=== PATIENT | female | born 1995 | race Caucasian/White ===

== ENCOUNTER 2016-07-22 19:04 | Emergency (ER) | payer MEDICAID ==
[2016-07-22 19:50] LABS: URINE BILIRUBIN NEGATIVE (NEGATIVE); URINE BLOOD NEGATIVE (NEGATIVE); URINE COLOR YELLOW; URINE GLUCOSE (UA) NEGATIVE (NEGATIVE); URINE KETONE NEGATIVE (NEGATIVE); URINE PROTEIN NEGATIVE (NEGATIVE); URINE UROBILINOGEN 0.2 E.U./dL (0.2 - 1.0)
[2016-07-22 19:51] LABS: URINE BACTERIA OCCASIONAL /hpf (NONE SEEN); URINE EPITHELIAL CELLS FEW /lpf (FEW); URINE RBC NONE SEEN /hpf (0-5); URINE WBC 0-2 /hpf (0-5)
--- NOTE | 2016-07-22 19:57 | ED Physician Chart ---
Chief Complaint/HPI - Patient Information Date Seen:: 07/22/16 Time Seen:: 19:22 Chief Complaint:: ABDOMINAL PAIN History of Present Illness:: THIS IS A 21 YO FEMALE DOWN'S PATIENT WITH A PAST HISTORY OF CROHN'S DISEASE WITH ABDOMINAL PAIN ASSOCIATED WITH DIARRHEA. SHE HAS NOT VOMITED OR HAD FEVER. SHE TAKES AZATHIOPRINE 50MG EVERY MORNING FOR THE CROHN'S DISEASE. Allergies:: Allergies Allergy/AdvReac Type Severity Reaction Status Date / Time No Known Allergies Allergy Verified 07/22/16 19:28 Vitals:: Vital Signs - 8 hr 07/22/16 19:10 Temp 98.4 F HR 88 RR 16 BP 100/53 O2 Sat % 100 Historian:: Family Member Review:: Nurse's Note Reviewed, Old Chart Reviewed, Patient unable to respond Review of Systems - Review of Systems General/Constitutional: No fever, No chills, No weight loss, No weakness, No diaphoresis, No edema, No loss of appetite Skin: No skin lesions, No rash, No bruising Head: No headache, No light-headedness Eyes: No loss of vision, No pain, No diplopia ENT: No earache, No nasal drainage, No sore throat, No tinnitus Neck: No neck pain, No swelling, No thyromegaly, No stiffness, No mass noted Cardio Vascular: No chest pain, No palpitations, No PND, No orthopnea, No edema Pulmonary: No SOB, No cough, No sputum, No wheezing GI: No nausea, No vomiting, Diarrhea, Pain, No melena, No hematochezia, No constipation, No hematemesis G/U: No dysuria, No frequency, No hematuria Musculoskeletal: No bone or joint pain, No back pain, No muscle pain Endocrine: No polyuria, No polydipsia Psychiatric: No prior psych history, No depression, No anxiety, No suicidal ideation Hematopoietic: No bruising, No lymphadenopathy Allergic/Immuno: No urticaria, No angioedema Neurological: No syncope, No focal symptoms, No weakness, No paresthesia, No headache, No seizure, No dizziness, No confusion, No vertigo Past Medical History - Past Medical History Obtainable: Yes Past Medical History: Other (CROHN DISEASE) Family History: None Social History: Non Smoker, No Alcohol, No Drug Use Surgical History: other (RIGHT KNEE SURGERY) Family Medical History - Family Member Mother History Unknown: Yes Ethnicity: Living Status: Still Living Physical Exam - Physical Examination General/Constitutional: Awake, Well-developed, well-nourished, Alert, No distress, GCS 15, Non-toxic appearing, Ambulatory Head: Atraumatic Eyes: Lids, conjuctiva normal, PERRL, EOMI Skin: Nl inspection, No rash, No skin lesions, No ecchymosis, Well hydrated, No lymphadenopathy ENMT: External ears, nose nl, Nasal exam nl, Lips, teeth, gums nl Neck: Nontender, Full ROM w/o pain, No JVD, No nuchal rigidity, No bruit, No mass, No stridor Respiratory: Nl effort/Exclusion, Clear to Auscultation, No Wheeze/Rhonchi/Rales Cardio Vascular: RRR, No murmur, gallop, rubs, NL S1 S2 GI: No tenderness/rebounding/guarding, No organomegaly, No hernia, Normal BS's, Nondistended, No mass/bruits, No McBurney tenderness Other GI comments:: THE ABDOMEN IS SOFT AND NON-TENDER : No CVA tenderness Extremities: No tenderness or effusion, Full ROM, normal strength in all extremities, No edema, Normal digits & nails Neuro/Psych: Alert/oriented, DTR's symmetric, Normal sensory exam, Normal motor strength, Judgement/insight normal, Mood normal, Normal gait, No focal deficits Misc: normal gait, Normal back, No paraspinal tenderness Labs/Radiology/EKG Results - Lab Results Results: Laboratory Tests 07/22/16 07/22/16 19:30 19:30 Urine Source RANDOM Urine Color YELLOW Urine Clarity CLEAR Urine pH 7.0 Ur Specific [place] 1.015 Urine Protein NEGATIVE Urine Glucose (UA) NEGATIVE Urine Ketones NEGATIVE Urine Blood NEGATIVE Urine Nitrate NEGATIVE Urine Bilirubin NEGATIVE Urine Urobilinogen 0.2 Ur Leukocyte Esterase NEGATIVE Urine RBC NONE SEEN Urine WBC 0-2 Ur Epithelial Cells FEW Urine Bacteria OCCASIONAL Urine Test NEGATIVE Assessment - Assessment General Assessment: GASTROENTERITIS ED Septic Shock - . Is Septic Shock (SBP<90, OR Lactate>4 mmol\L) present?: No - <6hrs of presentation: Vital Signs: Vital Signs - 8 hr 07/22/16 19:10 Temp 98.4 F HR 88 RR 16 BP 100/53 O2 Sat % 100 Reassessment (Disposition) - Reassessment Reassessment Condition:: Improved - Diagnosis Diagnosis:: GASTROENTERITIS - Aftercare/Follow up Instructions Aftercare/Follow-Up Instructions:: Counseled pt regarding lab results/diagnosis & need follow up, Refer to Discharge Instructions, Counseled pt & family regarding lab results/diagnosis & need follow up Notes:: SHE SHOULD BE SEEN BY HER PMD IN THE AM WITH A COPY OF THE LAB RESULTS. - Patient Disposition Discharge/Transfer:: Home Condition at Disposition:: Improved ED Discharge Plan - Patient Disposition Admit/Discharge/Transfer: PT DISCHARGED HOME Condition at Disposition: Improved Instructions: Abdominal Pain, Crohn's Disease Additional Instructions: follow up with patient's primary medical doctor abran take prescribed medications as ordered
[2016-07-22 20:14] LABS: % BASOPHILS 0.5 % (0.0-2.0); % EOSINOPHILS 2.3 % (0.0-5.0); % LYMPHOCYTES 16.6 % (20.0-50.0); % MONOCYTES 10.6 % (2.0-10.0); MEAN CELL VOLUME 85.3 fl (81-100); MEAN PLATELET VOLUME 6.9 fl; NEUTROPHILE ABSOLUTE 3.7 Th/cmm (1.8-8.0); RED BLOOD COUNT 3.64 Mil/cmm (3.80-5.10); RED CELL DISTRIBUTION WIDTH 18.5 % (11.5-20.0)
[2016-07-22 20:19] LABS: WHITE BLOOD COUNT 5.1 Th/cmm (4.8-10.8)
[2016-07-22 20:20] LABS: HEMATOCRIT 31.1 % (35.0-45.0); HEMOGLOBIN 10.2 gm/dL (11.7-15.5); MEAN CORPUSCULAR HGB CONC 32.8 pg (28.0-36.0)
[2016-07-22 20:21] LABS: PLATELET COUNT 588 Th/cmm (150-400)
[2016-07-22 20:26] LABS: INR 1.01 (0.5-1.4); PROTHROMBIN TIME (TEST) 10.5 SECONDS (9.5-11.5)
[2016-07-22 20:30] LABS: ALB/GLOB RATIO 0.7 (1.0-1.8); ALKALINE PHOSPHATASE 51 U/L (34-104); ANION GAP 10.1 (7.0-16.0); BILIRUBIN,TOTAL 0.3 mg/dL (0.3-1.0); BUN - UREA NITROGEN 15 mg/dL (7-25); BUN/CREATININE RATIO 18.8; CALCIUM SERUM 9.1 mg/dL (8.6-10.3); CARBON DIOXIDE 26.8 mEq/L (21.0-31.0); CHLORIDE 100 mEq/L (98-107); CREATININE - SERUM 0.8 mg/dL (0.6-1.2); GLUCOSE 87 mg/dL (70-105); POTASSIUM SERUM 3.9 mEq/L (3.5-5.1); SGOT 9 U/L (13-39); SGPT/ALT 5 U/L (7-52); SODIUM SERUM 133 mEq/L (136-145)
[2016-07-22 20:32] LABS: CHOLESTEROL 122 mg/dL (<200); TRIGLYCERIDES 118 mg/dL (<150)
== END 2016-07-22 20:55 | disposition home or self-care (01) ==
LOC: ER 19:04
DX: K52.9 Noninfective gastroenteritis and colitis, unspecified (principal)
CPT/HCPCS: 99284; 96372; 36415; 86592; 85025; 85610; 85730; 81001; 82150; 81025; 83690; 80053; 80061; J1885; Z7502

== ENCOUNTER 2017-01-06 15:37 | Emergency (ER) | payer MEDICAID ==
--- NOTE | 2017-01-07 09:45 | ER Physician Documentation ---
DATE OF SERVICE: 01/06/2017 HISTORY AND PHYSICAL EXAMINATION AND ER EVALUATION AND TREATMENT Full code. BSA 1.14 square millimeter. No known allergy. HISTORY OF PRESENT ILLNESS: This is a 21-year-old female patient born on 1995, came to the Emergency Room with her mother and uncle. According to them, a big piece, at least by the way she showed it was like a 1.5 inch long hot dog she ate and she was almost choking. She was not feeling good, but fortunately they were able to thump it out or somehow get it out of her throat. They did not bring the piece with them. This is the first time she choked and on listening to the history, I advised that the patient needs to be admitted so that she could be evaluated by the Gastroenterology. She might need a speech pathologist or might need a barium swallow study, etc., but the patient's mother had an appointment with [facility] doctor and she did not want to stay in the hospital. All the risks, complications, alternatives about not seeing her and going home were explained to the patient, she could if she takes a big chunk of thing because she has Down syndrome, she does not understand. She has Crohn's disease also, she takes the medications, she does not remember what medications she is taking. Her face is found to be red. PAST MEDICAL HISTORY: Essentially Down syndrome and Crohn disease for many years. REVIEW OF SYSTEMS: Essentially benign and negative. Other than the Down syndrome, no heart disease, no rheumatic fever, no valvular heart disease, no pericardial disease, no pneumonia, no TB, no pulmonary embolism, no evidence of any GI problems, no evidence of any esophageal problem, Zenker diverticulum, no evidence of any esophageal spasm before, no evidence of any tortuosity of the esophagus, no evidence of any GERD, Helicobacter pylori infection or any GI problems in the past. Past medical history is essentially same as mentioned above. PERSONAL HISTORY: Down syndrome, otherwise single, not , no children. Does not smoke. Does not drink. FAMILY HISTORY: Mother has 2 other children, doing fine. Mother's brother was present, he is alright. PHYSICAL EXAMINATION: GENERAL: The patient appears to be younger than her stated age. Her face is red with lots of what looks like macules all over the face, which she has had for a long time. Conjunctivae are pink. Sclerae white. HEENT: Normal. NECK: Jugular venous pressure is normal. There is no cyanosis, petechia, ecchymosis. CHEST: Clear, without any rales, rhonchi, bronchial wheezing. ABDOMEN: Soft, benign, negative. HEART: Normal heart sounds. Soft fourth heart sound. Second heart sound is physiologically split. CENTRAL NERVOUS SYSTEM: Down syndrome. There is no heart disease. GENITOURINARY: Benign and negative. CLINICAL IMPRESSION: The patient has a choking spell on a hotdog, which according to them, showing me look like a 1.5 inch size x about 1 cm in size. I advised them that the patient should be admitted for further investigation and treatment, maybe she might need a barium swallow. Speech pathology evaluation, Gastroenterology maybe consultation, but the patient had to go to [facility] on Monday. Over the weekend, we might not have anything or we might have somebody available. She does not want to take any chances but she wants to go home. I took Mr. Macario, the nurse with me and explained to the patient all the risks, complications, alternatives about going home. She could if she chokes on a big piece of paper. They still wanted to go so the patient was discharged home. JOB# [id number]
== END 2017-01-06 16:29 | disposition left against medical advice (07) ==
LOC: ER 15:37
DX: T17.828A Food in other parts of respiratory tract causing other injury, initial encounter (principal); Q90.9 Down syndrome, unspecified; K50.90 Crohn's disease, unspecified, without complications; X58.XXXA Exposure to other specified factors, initial encounter; Y93.89 Activity, other specified; Y92.89 Other specified places as the place of occurrence of the external cause; Y99.8 Other external cause status
CPT/HCPCS: Z7502